=== PATIENT | female | born 1985 | race Caucasian/White ===

== ENCOUNTER 2017-05-20 18:41 | Emergency (ER) | payer OTHER ==
[~2017-05-20] VITALS: Ht 162.6 cm; Wt 69.0 kg
[~2017-05-20 18:41] MED LIST: AMOXICILLIN500 MG PO; BACTRIM DS1 TAB PO; KEFLEX500 M1 PO; LORTAB 5 OR; NO HOME MEDS; NYQUI1 OR; PRENATA2 OR; PREVACID30 M3 PO; ZOFRAN ODT4 MG PO
[2017-05-20 19:52] LABS: HEMOGLOBIN 13.2 g/dl (12.0-16.0); IMMATURE GRANULOCYTES 0.2 % (0.0-1.0); MEAN CELL VOLUME 88.6 fL CALC (80.0-100.0); MEAN CORPUSCULAR HGB CONC 33.8 g/L CALC (32.0-36.0); NEUT# 6.45 thou/uL (2.00-7.15); RED BLOOD COUNT 4.4 mill/uL (4.20-5.60); RED CELL DISTRI WIDTH 11.9 % (11.5-15.5)
[2017-05-20 20:26] LABS: URINE BILIRUBIN - DIPSTICK NEGATIVE (NEGATIVE); URINE BLOOD DIPSTICK LARGE (NEGATIVE); URINE COLOR YELLOW; URINE GLUCOSE - DIPSTICK NEGATIVE (NEGATIVE); URINE KETONE TRACE mg/dL (NEGATIVE); URINE LEUK ESTERASE NEGATIVE (NEGATIVE); URINE PH 5.5 (4.5-8.0); URINE PROTEIN - DIPSTICK TRACE mg/dL (NEG-TRACE); URINE SPECIFIC GRAVITY >=1.030; URINE UROBILINOGEN - DIPSTICK 0.2 E.U./dL (0.2)
[2017-05-20 20:27] LABS: URINE NITRITE - DIPSTICK POSITIVE (Negative)
[2017-05-20 20:28] LABS: URINE CLARITY CLOUDY
[2017-05-20 20:28] LABS: ALBUMIN 4.2 g/dL (3.2-5.0); ALKALINE PHOSPHATASE 58 u/l (38-126); ANION GAP 16 (6-22 (CALC)); BILIRUBIN, TOTAL 0.3 mg/dL (0.0-1.4); BUN 11 mg/dL (7-17); BUN/CREATININE RATIO 19 (12-20 (CALC)); CALCIUM 9.4 mg/dL (8.4-10.2); CARBON DIOXIDE 24 mmol/l (22-30); CHLORIDE 107 mmol/l (95-108); CREATININE 0.6 mg/dL (0.5-1.0); GFR > 60 ML/MIN (>=60 (CALC)); GFR FOR AFR.AMER. > 60 ML/MIN (>=60 (CALC)); GLUCOSE 83 mg/dL (65-105); POTASSIUM 3.6 mmol/l (3.5-5.1); SGOT/AST 18 u/l (14-36); SGPT/ALT 33 u/l (9-52); SODIUM 145 mmol/l (137-146); TOTAL PROTEIN 7.1 g/dL (6.3-8.2)
[2017-05-20 20:35] LABS: URINE BACTERIA MODERATE hpf; URINE CALCIUM OXALATE CRYSTALS FEW lpf; URINE RBC TNTC RBC/hpf (0-5); URINE SQUAMOUS EPITHELIAL CELL FEW EPI/hpf (0-FEW)
[2017-05-20 20:44] LABS: BETA-HCG, QUANT(RESULT NUMBER) 7 mIU/mL
[2017-05-20] MEDS ORDERED: MACROBID100 MG PO (22:42)
[2017-05-20 22:57] VITALS: BP 118/80
== END 2017-05-20 22:59 | disposition home or self-care (01) | DRG 690 ==
LOC: ED 18:41
PROVIDERS: Emergency Medicine
DX: N39.0 Urinary tract infection, site not specified (principal); B96.1 Klebsiella pneumoniae [K. pneumoniae] as the cause of diseases classified elsewhere; F17.210 Nicotine dependence, cigarettes, uncomplicated; N93.9 Abnormal uterine and vaginal bleeding, unspecified

== ENCOUNTER 2018-01-07 05:40 | Emergency (ER) | payer OTHER ==
[~2018-01-07] VITALS: Ht 162.6 cm; Wt 68.0 kg
[~2018-01-07 05:40] MED LIST changes: +MACROBID100 MG PO
[2018-01-07] MEDS ORDERED: STERAPRED DS10 MG PO (06:08)
[2018-01-07 06:27] VITALS: BP 130/86
== END 2018-01-07 06:27 | disposition home or self-care (01) | DRG 607 ==
LOC: ED 05:40
DX: L25.9 Unspecified contact dermatitis, unspecified cause (principal); F17.210 Nicotine dependence, cigarettes, uncomplicated

== ENCOUNTER 2022-08-10 18:06 | Emergency (ER) | payer OTHER ==
[~2022-08-10] VITALS: Ht 162.6 cm; Wt 77.0 kg
[~2022-08-10 18:06] MED LIST changes: +STERAPRED DS10 MG PO
[2022-08-10 18:32] VITALS: BP 133/108
[2022-08-10 18:44] VITALS: BP 133/108
== END 2022-08-10 18:52 | disposition left against medical advice (07) | DRG 951 ==
LOC: ED 18:06 → LWOBS 18:48
DX: Z53.21 Procedure and treatment not carried out due to patient leaving prior to being seen by health care provider (principal)

== ENCOUNTER 2022-10-25 01:27 | Emergency (ER) | payer OTHER ==
[~2022-10-25] VITALS: Ht 162.6 cm; Wt 70.0 kg
[2022-10-25 01:42] VITALS: BP 132/87
[2022-10-25 01:45] VITALS: BP 132/85
[2022-10-25 02:00] VITALS: BP 143/78
[2022-10-25 02:16] VITALS: BP 133/89
[2022-10-25] MEDS ORDERED: PERCOCET 5/325M1 TAB PO (02:20)
[2022-10-25 02:30] VITALS: BP 133/80
[2022-10-25 02:45] VITALS: BP 134/85
== END 2022-10-25 03:01 | disposition home or self-care (01) ==
LOC: ED 01:27
DX: S52.501A Unspecified fracture of the lower end of right radius, initial encounter for closed fracture (principal); F17.200 Nicotine dependence, unspecified, uncomplicated; V28.49XA Other motorcycle driver injured in noncollision transport accident in traffic accident, initial encounter; Y92.410 Unspecified street and highway as the place of occurrence of the external cause